=== PATIENT | male | born 1940 | race Caucasian/White ===

== ENCOUNTER 2017-01-09 11:15 | Emergency (ER) | payer MEDICARE, MEDICAID, OTHER ==
[2017-01-09 11:27] VITALS: BP 124/63
--- NOTE | 2017-01-09 11:28 | EDM.PDOC ---
ED HPI GENERAL MEDICAL PROBLEM - General Chief Complaint: Respiratory Problem Stated Complaint: Cough x3 months, Hx of COPD Time Seen by Provider: 01/09/17 11:27 Source of Information: Reports: Patient, RN, RN Notes Reviewed History Limitations: Reports: No Limitations - History of Present Illness INITIAL COMMENTS - FREE TEXT/NARRATIVE: Arrives from home by POV with c/o cough x3 months. Pt states he has been to 3 doctors and none of them can figure out what is wrong with him. Pt reports mild clear sputum production. Denies fevers, chills, N/V, chest pain, abdominal pain , unintended weight gain or loss, or edema. Pt states that a little over a year ago he began to try to reduce his wt and his "[place]" doctor started him on a little while pill which helped him reduce his weight from 280lbs to 215lbs in a little over a year. 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: Other Medication(s) Headache Pain Score (Numeric/FACES): 3 - Related Data Allergies Allergy/AdvReac Type Severity Reaction Status Date / Time No Known Allergies Allergy Verified 01/09/17 11:24 Home Meds: Home Meds Aspirin [Adult Low Dose Aspirin EC] 81 mg PO DAILY 05/22/14 [History] Budesonide/Formoterol [Symbicort 160-4.5 MCG] 2 puff INH BID 05/22/14 [History] Carvedilol 12.5 mg PO BID 05/22/14 [History] Cholecalciferol (Vitamin D3) [Vitamin D3] 400 unit PO DAILY 05/22/14 [History] Citalopram [Citalopram HBr] 10 mg PO DAILY 05/22/14 [History] Clopidogrel [Plavix] 75 mg PO DAILY 05/22/14 [History] Furosemide [Lasix] 20 mg PO ASDIRECTED 05/22/14 [History] Furosemide [Lasix] 40 mg PO DAILY 05/22/14 [History] Levothyroxine [Synthroid] 100 mcg PO DAILY 05/22/14 [History] Lisinopril 5 mg PO DAILY 05/22/14 [History] Niacin 500 mg PO DAILY 05/22/14 [History] atorvaSTATin [Lipitor] 20 mg PO BEDTIME 05/22/14 [History] Past Medical History HEENT History: Reports: Hard of Hearing, Impaired Vision Cardiovascular History: Reports: Angina, Automatic Implantable Cardioverter Defibrillators, CAD, Heart Failure, High Cholesterol, Hypertension Respiratory History: Reports: COPD Psychiatric History: Reports: Depression Endocrine/Metabolic History: Reports: Hypothyroidism, Obesity/BMI 30+ Social & Family History - Family History Family Medical History: Noncontributory - Tobacco Use Smoking Status *Q: Former Smoker - Caffeine Use Caffeine Use: Reports: Coffee - Alcohol Use Alcohol Use History: No - Living Situation & Occupation Living situation: Reports: , with Spouse Occupation: Retired ED ROS ENT - Review of Systems Review Of Systems: ROS reveals no pertinent complaints other than HPI. ED EXAM, ENT - Physical Exam Exam: See Below Exam Limited By: No Limitations General Appearance: Alert, No Apparent Distress Ears: Normal External Exam, Hearing Grossly Normal Nose: Normal Inspection, No Blood Mouth/Throat: Normal Inspection, Normal Gums, Normal Lips, Normal Oropharynx, Normal Teeth Head: Atraumatic, Normocephalic Neck: Normal Inspection, Supple, Non-Tender, Full Range of Motion. No: Lymphadenopathy (L), Lymphadenopathy (R) Respiratory/Chest: No Respiratory Distress, No Accessory Muscle Use, Decreased Breath Sounds, Crackles, Rhonchi (intermittent at left base) Cardiovascular: Normal Peripheral Pulses, Regular Rate, Rhythm, No Edema, No Gallop, No JVD, No Murmur, No Rub GI/Abdominal: Normal Bowel Sounds, Soft, Non-Tender, No Organomegaly, No Distention, No Abnormal Bruit (Male) Exam: Deferred Rectal (Males) Exam: Deferred Back: Normal Inspection Extremities: Normal Inspection, Normal Range of Motion, Non-Tender, No Pedal Edema, Normal Capillary Refill Neurological: Alert, Oriented, CN II-XII Intact, Normal Cognition, Normal Gait, No Motor/Sensory Deficits Psychiatric: Normal Affect, Normal Mood Skin: Warm, Dry, Intact, Normal Color, No Rash Course - Vital Signs Last Recorded V/S: Last Vital Signs Temp 36.2 C 01/09/17 11:25 Pulse 66 01/09/17 11:25 Resp 16 01/09/17 11:25 BP 124/63 01/09/17 11:25 Pulse Ox 98 01/09/17 11:25 - Orders/Labs/Meds Labs: Laboratory Tests 01/09/17 01/09/17 Range/Units 11:54 11:54 WBC 8.7 (5.0-10.0) 10^3/uL RBC 4.59 L (4.6-6.2) 10^6/uL Hgb 14.0 (14.0-18.0) g/dL Hct 42.7 (40.0-54.0) % MCV 93.0 (80-100) fL MCH 30.5 (27.0-34.0) pg MCHC 32.8 L (33.0-35.0) g/dL Plt Count 211 (150-450) 10^3/uL Neut % (Auto) 64.6 (42.2-75.2) % Lymph % (Auto) 22.3 (20.5-50.1) % [place] % (Auto) 10.4 H (2-8) % Eos % (Auto) 2.0 (1.0-3.0) % Baso % (Auto) 0.7 (0.0-1.0) % Sodium 138 (135-145) mmol/L Potassium 4.3 (3.6-5.0) mmol/L Chloride 98 L (101-111) mmol/L Carbon Dioxide 30.0 (21.0-31.0) mmol/L Anion Gap 14.3 BUN 17 (7-18) mg/dL Creatinine 1.0 (0.6-1.3) mg/dL Est Cr Clr Drug Dosing 64.81 mL/min Estimated GFR (MDRD) > 60 BUN/Creatinine Ratio 17.00 Glucose 110 H (74-105) mg/dL Calcium 9.0 (8.4-10.2) mg/dl Total Bilirubin 0.8 (0.2-1.0) mg/dL AST 18 (10-42) IU/L ALT 15 (10-60) IU/L Alkaline Phosphatase 90 (42-121) IU/L B-Natriuretic Peptide 71 (0-100) pg/ml Total Protein 6.0 L (6.7-8.2) g/dl Albumin 3.4 (3.2-5.5) g/dl Globulin 2.6 Albumin/Globulin Ratio 1.31 - Radiology Interpretation Free Text/Narrative:: 2V CXR: pacer w/single lead, sternotomy wires, chronic COPD changes, scarring/ atelectasis vs consolidation in left lower lobe. Departure - Departure Time of Disposition: 12:40 Disposition: Home, Self-Care 01 Condition: Fair Clinical Impression: Atelectasis of left lung COPD (chronic obstructive pulmonary disease) Qualifiers: COPD type: chronic bronchitis Chronic bronchitis type: unspecified Qualified Code(s): J42 - Unspecified chronic bronchitis - Discharge Information Instructions: Chronic Bronchitis, Atelectasis, Adult Forms: ED Department Discharge Additional Instructions: Rx: Levaquin 500mg Rx: Prednisone 20mg Follow up in clinic with Dr. Foote this week for recheck.
[2017-01-09 12:19] LABS: CHLORIDE,CL 98 mmol/L (101-111); SODIUM,NA 138 mmol/L (135-145)
--- NOTE | 2017-01-09 12:24 | CR ---
Clinical history: 76-year-old male cough and "rhonchi" left lung base. Interpretation: Platelike atelectasis left base new since August 2014 comparison film. Borderline cardiomegaly unchanged this patient with sternotomy wires and cardiac pacemaker. No cephalization of flow, new signs of alveolar edema, dependent effusion, lung mass or focal lobar p neumonia. No pneumothorax. CONCLUSION: Atelectasis/fibrosis left base. No signs of heart failure or lobar pneumonia.
== END 2017-01-09 12:50 | disposition home or self-care (01) ==
LOC: DL.ED 11:15
DX: J42 Unspecified chronic bronchitis (principal); J98.11 Atelectasis; H54.7 Unspecified visual loss; I25.119 Atherosclerotic heart disease of native coronary artery with unspecified angina pectoris; I11.0 Hypertensive heart disease with heart failure; I50.9 Heart failure, unspecified; E66.9 Obesity, unspecified; F32.9 Major depressive disorder, single episode, unspecified; Z87.891 Personal history of nicotine dependence; Z79.899 Other long term (current) drug therapy; Z79.82 Long term (current) use of aspirin
CPT/HCPCS: 36415; 71020; 80053; 83880; 85025; 99283; 99284

== ENCOUNTER 2019-10-01 05:53 | Day surgery (SDC) | payer MEDICARE, MEDICAID ==
[2019-10-01] MEDS ORDERED: fentaNYL 100 MCG/2 ML SDV IV ONE ×3 (05:54→06:59)
[2019-10-01] MEDS ORDERED: Midazolam 1 MG/ML 2 ML SDV IV ONE ×6 (05:54→07:09)
[2019-10-01] MEDS ORDERED: fentaNYL 100 MCG/2 ML SDV ONE (06:22)
[2019-10-01] MEDS ORDERED: Midazolam 1 MG/ML 2 ML SDV ONE (06:22)
[2019-10-01] MEDS ORDERED: Sodium Chloride 0.9% 10 ML Syringe FLUSH PRN (07:29)
[2019-10-01] MEDS ORDERED: Dextrose 5%-0.45% NaCl 1,000 ML IV SCH (07:30)
--- NOTE | 2019-10-01 08:53 | OR ---
DATE: 10/01/2019 PROCEDURE: Total colonoscopy, terminal ileoscopy, and multiple pinch biopsies. INSTRUMENT USED: PCF-H190DL Olympus video colonoscope. PREMEDICATIONS: Fentanyl 100 mcg intravenous, Versed 3 mg intravenous. Nasal O2 cannula. The procedure was done under pulse oximetry, BP recording, and playground monitor. INDICATION: The patient with chronic diarrhea, unexplained and not responsive to medical measures. Colonoscopic examination is done for detection of any polypoid lesions and removal, biopsies to be obtained for microscopic colitis, endoscopic hemostasis therapy if needed. DESCRIPTION OF PROCEDURE: Initial rectal exam was unremarkable. Rigid anoscopy showed moderate sized internal hemorrhoids without bleeding from them. The colonoscope was passed with ease. Numerous scattered diverticula were noted in the distal left colon along with deformity. The scope was passed with ease up to and beyond the ileocecal junction to visualize normal-appearing terminal ileum, photographs were taken, multiple pinch biopsies were obtained from the terminal ileum and sent for histopathology. Photographs were also taken of the normal-appearing cecum. No bleeding was noted from any of the visualized areas at the commencement of the examination. There was large amount of fecal material that had to be aspirated. Some solid in consistency that could not be cleared. The bowel preparation was found to be scale of 1 in the right colon, 2 in transverse colon, and 1 in the left colon, total score 4. No stricture. No vascular ectasia. No large isolated ulcerations seen. No evidence of diffuse inflammatory bowel disease in the form of friability, contact bleeding, or ulcerations. No polyp or tumor mass identified. Probing the proximal sides of folds and flexures using adequate distention and clearing up the stool material, withdrawal of the scope was made. Multiple pinch biopsies were taken from the normal-appearing mucosa of the mid transverse colon, mid descending colon, and rectosigmoid, and sent for any histopathologic evidence of microscopic colitis. No bleeding was noted from any of the visualized areas at the completion of examination. IMPRESSION: 1. Internal hemorrhoids. 2. Diverticulosis. The patient tolerated the procedure well. [facility] /[id number]
[2019-10-01 09:39] VITALS: BP 116/48; PULSE 73
== END 2019-10-01 09:30 | disposition home or self-care (01) ==
LOC: DL.ENDO 05:53
PROVIDERS: ATTEND Internal Medicine Gastroenterology
DX: K52.9 Noninfective gastroenteritis and colitis, unspecified (principal); K57.30 Diverticulosis of large intestine without perforation or abscess without bleeding; K64.8 Other hemorrhoids; K63.89 Other specified diseases of intestine; I50.9 Heart failure, unspecified; E78.5 Hyperlipidemia, unspecified; J44.9 Chronic obstructive pulmonary disease, unspecified; E11.9 Type 2 diabetes mellitus without complications; E66.09 Other obesity due to excess calories; G47.33 Obstructive sleep apnea (adult) (pediatric); Z90.49 Acquired absence of other specified parts of digestive tract; Z98.890 Other specified postprocedural states; Z87.11 Personal history of peptic ulcer disease; Z87.891 Personal history of nicotine dependence; Z68.33 Body mass index [BMI] 33.0-33.9, adult
CPT/HCPCS: 45380; J2250; J3010; J7042; 88305

== ENCOUNTER 2022-04-11 10:37 | Emergency (ER) | payer MEDICARE, MEDICAID ==
[2022-04-11 11:33] VITALS: BP 121/86
[2022-04-11] MEDS ORDERED: Albuterol/Ipratropium 3.0-0.5 MG/3 ML Neb Soln NEB ONE (11:55)
[2022-04-11 12:11] LABS: ANION GAP 10.1 mEq/L (7-13)
[2022-04-11 12:42] VITALS: PULSE 75
[2022-04-11] MEDS ORDERED: methylPREDNISolone Sodium Succinate 125 MG/2 ML SDV IVPUSH ONE (13:20)
[2022-04-11] MEDS ORDERED: methylPREDNISolone Sodium Succinate 125 MG/2 ML SDV IM ONE (13:33)
== END 2022-04-11 13:18 | disposition home or self-care (01) ==
LOC: DL.ED 10:37
DX: J44.1 Chronic obstructive pulmonary disease with (acute) exacerbation (principal); I11.0 Hypertensive heart disease with heart failure; I50.9 Heart failure, unspecified; M10.9 Gout, unspecified; I25.119 Atherosclerotic heart disease of native coronary artery with unspecified angina pectoris; E78.00 Pure hypercholesterolemia, unspecified; E03.9 Hypothyroidism, unspecified; Z88.0 Allergy status to penicillin; Z79.82 Long term (current) use of aspirin; Z79.899 Other long term (current) drug therapy; Z20.822 Contact with and (suspected) exposure to COVID-19
CPT/HCPCS: 36415; 71046; 80053; 83605; 83880; 85025; 94640; 96372; 99285; J2930; J7620-GY

== ENCOUNTER 2022-08-18 02:03 | Emergency (ER) | payer MEDICARE, MEDICAID ==
[2022-08-18] MEDS ORDERED: Sodium Chloride 0.9% 10 ML Syringe FLUSH PRN (02:08)
[2022-08-18] MEDS ORDERED: Aspirin 81 MG Tab.Chew ONE (02:12)
[2022-08-18] MEDS ORDERED: Aspirin 81 MG Tab.Chew PO ONE (02:21)
[2022-08-18 02:44] VITALS: BP 106/71; PULSE 139
[2022-08-18 02:50] LABS: ANION GAP 11.3 mEq/L (7-13)
[2022-08-18 03:04] LABS: PTT,PARTIAL THROMBOPLSTIN TIME 27.7 SEC (22.0-34.0)
[2022-08-18] MEDS ORDERED: GI Cocktail Oral Solution 30 ML PO ONE (04:15)
[2022-08-18] MEDS ORDERED: Acetaminophen 325 MG Tab PO ONE (04:16)
== END 2022-08-18 06:07 | disposition home or self-care (01) ==
LOC: DL.ED 02:03
DX: R07.89 Other chest pain (principal); I25.10 Atherosclerotic heart disease of native coronary artery without angina pectoris; E78.00 Pure hypercholesterolemia, unspecified; I11.0 Hypertensive heart disease with heart failure; I50.9 Heart failure, unspecified; J44.9 Chronic obstructive pulmonary disease, unspecified; E03.9 Hypothyroidism, unspecified; E66.9 Obesity, unspecified; Z68.34 Body mass index [BMI] 34.0-34.9, adult; Z79.02 Long term (current) use of antithrombotics/antiplatelets; Z86.16 Personal history of COVID-19; Z79.82 Long term (current) use of aspirin; Z79.899 Other long term (current) drug therapy; Z79.51 Long term (current) use of inhaled steroids; Z88.0 Allergy status to penicillin; Z88.8 Allergy status to other drugs, medicaments and biological substances
CPT/HCPCS: 36415; 80053; 84484; 85025; 85610; 85730; 93005; 93010; 99284; 99285; A9270; J3490

== ENCOUNTER 2022-11-25 15:42 | Observation (INO) | payer MEDICARE, MEDICAID ==
[2022-11-25] MEDS ORDERED: Albuterol/Ipratropium 3.0-0.5 MG/3 ML Neb Soln NEB ONE (16:17)
[2022-11-25 16:29] LABS: BASOPHILS PERCENT AUTO 0.7 % (0.0-1.0); EOSINOPHILS PERCENT AUTO 4.5 % (1.0-3.0); HEMATOCRIT 44.9 % (40.0-54.0); HEMOGLOBIN 14.5 g/dL (14.0-18.0); LYMPHOCYTES PERCENT AUTO 25.1 % (20.5-50.1); MEAN CORPUSCULAR HEMOGLOBIN 29.2 pg (27.0-34.0); MEAN CORPUSCULAR HGB CONC 32.3 g/dL (33.0-35.0); MEAN CORPUSCULAR VOLUME 90.5 fL (80-100); MONOCYTES PERCENT AUTO 12.7 % (2-8); PLATELET COUNT,PLT 181 10^3/uL (150-450); RED BLOOD CELL COUNT 4.96 10^6/uL (4.6-6.2); WHITE BLOOD CELL COUNT,WBC 7.1 10^3/uL (5.0-10.0)
[2022-11-25 16:37] LABS: APPEARANCE,URINE CLEAR (CLEAR); BILIRUBIN,URINE NEGATIVE (NEGATIVE); COLOR,URINE YELLOW (YELLOW); GLUCOSE,URINE NEGATIVE (NEGATIVE); KETONES,URINE NEGATIVE (NEGATIVE); LEUKOCYTE ESTERASE,URINE NEGATIVE (NEGATIVE); NITRITE,URINE NEGATIVE (NEGATIVE); OCCULT BLOOD,URINE NEGATIVE (NEGATIVE); PH,URINE 6.5 (5.0-9.0); PROTEIN,URINE NEGATIVE (NEGATIVE); UROBILINOGEN,URINE 0.2 mg/dL (0.2-1.0)
[2022-11-25 16:49] LABS: ALBUMIN 3.1 g/dL (3.4-5.0); ANION GAP 8.1 mEq/L (7-13); BILIRUBIN TOTAL 0.6 mg/dL (0.2-1.0); BUN/CREATININE RATIO 21.4 (No establ ref range); C-REACTIVE PROTEIN 2.2 mg/dL (0.0-0.9); CREATININE 0.98 mg/dL (0.70-1.30); EST CRCL DRUG DOSING (CG) 62.07 mL/min; POTASSIUM,K 4.1 mmol/L (3.5-5.1); PROTEIN TOTAL,TP 6.2 g/dL (6.4-8.2)
[2022-11-25 16:52] LABS: LACTIC ACID 1.2 mmol/L (0.4-2.0)
[2022-11-25 16:58] LABS: PROTHROMBIN TIME 10.1 SEC (9.0-12.0)
[2022-11-25] MEDS ORDERED: Furosemide 100 MG/10 ML SDV IVPUSH ONE (17:08)
[2022-11-25] MEDS ORDERED: Bisacodyl 5 MG Tab PO PRN (17:58)
[2022-11-25] MEDS ORDERED: Acetaminophen/oxyCODONE 325-5 MG Tab PO PRN (17:58)
[2022-11-25] MEDS ORDERED: Ondansetron 4 MG/2 ML SDV IVPUSH PRN (17:58)
[2022-11-25] MEDS ORDERED: HYDROmorphone 0.5 MG/0.5 ML Syringe IVPUSH PRN (17:58)
[2022-11-25] MEDS ORDERED: Albuterol/Ipratropium 3.0-0.5 MG/3 ML Neb Soln NEB PRN (17:58)
[2022-11-25] MEDS ORDERED: Magnesium Hydroxide 400 MG/5 ML Susp 30 ML Cup PO PRN (17:58)
[2022-11-25] MEDS ORDERED: Acetaminophen 325 MG Tab PO PRN (17:58)
[2022-11-25] MEDS ORDERED: Melatonin 3 MG Tab PO PRN (18:03)
[2022-11-25] MEDS ORDERED: 50% Dextrose in Water 50 ML Syringe IVPUSH PRN (20:04)
[2022-11-25] MEDS ORDERED: Glucagon,Human Recombinant 1 MG Vial IM PRN (20:04)
[2022-11-26 06:21] LABS: BASOPHILS PERCENT AUTO 0.6 % (0.0-1.0); EOSINOPHILS PERCENT AUTO 5.1 % (1.0-3.0); HEMATOCRIT 44.9 % (40.0-54.0); HEMOGLOBIN 14.6 g/dL (14.0-18.0); LYMPHOCYTES PERCENT AUTO 28.8 % (20.5-50.1); MEAN CORPUSCULAR HEMOGLOBIN 29.4 pg (27.0-34.0); MEAN CORPUSCULAR HGB CONC 32.5 g/dL (33.0-35.0); MEAN CORPUSCULAR VOLUME 90.3 fL (80-100); MONOCYTES PERCENT AUTO 12.1 % (2-8); NEUTROPHILS PERCENT AUTO 53.4 % (42.2-75.2); PLATELET COUNT,PLT 180 10^3/uL (150-450); RED BLOOD CELL COUNT 4.97 10^6/uL (4.6-6.2); WHITE BLOOD CELL COUNT,WBC 6.7 10^3/uL (5.0-10.0)
[2022-11-26 06:27] LABS: ALBUMIN 2.8 g/dL (3.4-5.0); BILIRUBIN TOTAL 0.6 mg/dL (0.2-1.0); BUN/CREATININE RATIO 18.1 (No establ ref range); CALCIUM 8.8 mg/dL (8.5-10.1); CREATININE 1.05 mg/dL (0.70-1.30); EST CRCL DRUG DOSING (CG) 57.94 mL/min; MAGNESIUM 2.1 mg/dL (1.8-2.4); PROTEIN TOTAL,TP 5.8 g/dL (6.4-8.2)
[2022-11-26 06:30] LABS: A/G RATIO 0.93
[2022-11-26] MEDS: Insulin Lispro 100 Units/ML 3 ML Vial SUBCUT SCH ×3 (08:17→17:02)
[2022-11-26] MEDS ORDERED: Sodium Chloride 0.9% 10 ML Syringe FLUSH PRN (08:52)
[2022-11-26] MEDS: Saccharomyces Boulardii (Probiotic) 250 MG Cap PO SCH (08:58)
[2022-11-26] MEDS ORDERED: Bumetanide 1 MG/4 ML MDV IVPUSH ONE (09:00)
[2022-11-26] MEDS ORDERED: cefTRIAXone 2 GM Vial IVPUSH SCH (09:00)
[2022-11-26] MEDS ORDERED: LORazepam 0.5 MG Tab PO PRN (10:05)
[2022-11-26] MEDS ORDERED: INCRUSE ELLIPTA 62.5 MCG INH SCH ×2 (13:15→21:00)
[2022-11-26] MEDS: Clopidogrel 75 MG Tab **OWN MED PO SCH (14:42)
[2022-11-26] MEDS: MONTELUKAST 10 MG PO SCH (14:42)
[2022-11-26] MEDS: Citalopram 20 MG Tab **OWN MED PO SCH (14:43)
[2022-11-26] MEDS: Levothyroxine 88 MCG Tab **OWN MED PO SCH (16:05)
[2022-11-26] MEDS: CARVEDILOL 12.5 MG PO SCH (17:59)
[2022-11-26] MEDS ORDERED: Carvedilol 6.25 MG Tab PO SCH (18:00)
[2022-11-26] MEDS ORDERED: Aspirin 81 MG Tab.EC **OWN MED PO SCH (21:00)
[2022-11-26] MEDS ORDERED: ATORVASTATIN 40 MG PO SCH (21:00)
[2022-11-26] MEDS ORDERED: Non-Formulary Medication 1 Each (Budesonide/Formoterol 6 GM Inhaler) INH SCH (21:00)
[2022-11-26] MEDS ORDERED: atorvaSTATin 20 MG Tab PO SCH (21:00)
[2022-11-27] MEDS: Levothyroxine 88 MCG Tab **OWN MED PO SCH (05:39)
[2022-11-27] MEDS ORDERED: Levothyroxine 88 MCG Tab PO SCH (06:30)
[2022-11-27 06:53] LABS: ALBUMIN 2.9 g/dL (3.4-5.0); BILIRUBIN TOTAL 0.7 mg/dL (0.2-1.0); BUN/CREATININE RATIO 25.5 (No establ ref range); C-REACTIVE PROTEIN 3.1 mg/dL (0.0-0.9); CALCIUM 8.9 mg/dL (8.5-10.1); CREATININE 0.94 mg/dL (0.70-1.30); EST CRCL DRUG DOSING (CG) 64.72 mL/min; MAGNESIUM 2.3 mg/dL (1.8-2.4); PROTEIN TOTAL,TP 6.2 g/dL (6.4-8.2)
[2022-11-27 07:03] LABS: A/G RATIO 0.88
[2022-11-27] MEDS: Insulin Lispro 100 Units/ML 3 ML Vial SUBCUT SCH (08:08)
[2022-11-27] MEDS: Saccharomyces Boulardii (Probiotic) 250 MG Cap PO SCH (08:23)
[2022-11-27] MEDS: MONTELUKAST 10 MG PO SCH (08:24)
[2022-11-27] MEDS: CARVEDILOL 12.5 MG PO SCH (08:24)
[2022-11-27] MEDS: Citalopram 20 MG Tab **OWN MED PO SCH (08:25)
[2022-11-27] MEDS: Clopidogrel 75 MG Tab **OWN MED PO SCH (08:25)
[2022-11-27] MEDS ORDERED: Montelukast 10 MG Tab PO SCH (09:00)
[2022-11-27] MEDS ORDERED: Citalopram 20 MG Tab PO SCH (09:00)
[2022-11-27] MEDS ORDERED: Clopidogrel 75 MG Tab PO SCH (09:00)
[2022-11-27] MEDS ORDERED: Bumetanide 1 MG/4 ML MDV IVPUSH ONE (09:19)
[2022-11-27 13:26] VITALS: BP 128/57; PULSE 72
== END 2022-11-27 12:40 | disposition home or self-care (01) ==
LOC: DL.ED 15:42 → DL.MS 17:53
PROVIDERS: ADMIT Internal Medicine; ATTEND Internal Medicine
DX: L03.115 Cellulitis of right lower limb (principal); I10 Essential (primary) hypertension; E78.5 Hyperlipidemia, unspecified; I25.2 Old myocardial infarction; I50.20 Unspecified systolic (congestive) heart failure; J44.9 Chronic obstructive pulmonary disease, unspecified; G47.33 Obstructive sleep apnea (adult) (pediatric); E11.9 Type 2 diabetes mellitus without complications; E07.9 Disorder of thyroid, unspecified; M10.9 Gout, unspecified; K52.9 Noninfective gastroenteritis and colitis, unspecified; F41.9 Anxiety disorder, unspecified; F32.A Depression, unspecified; R60.0 Localized edema; R06.02 Shortness of breath; E66.9 Obesity, unspecified; I20.9 Angina pectoris, unspecified; E78.00 Pure hypercholesterolemia, unspecified; E03.9 Hypothyroidism, unspecified; Z87.891 Personal history of nicotine dependence; Z98.49 Cataract extraction status, unspecified eye; Z90.89 Acquired absence of other organs; Z95.810 Presence of automatic (implantable) cardiac defibrillator; Z88.0 Allergy status to penicillin; Z88.1 Allergy status to other antibiotic agents; Z79.82 Long term (current) use of aspirin; Z79.899 Other long term (current) drug therapy; Z90.49 Acquired absence of other specified parts of digestive tract
CPT/HCPCS: 36415; 71046; 80053; 81003; 82947; 83605; 83735; 83880; 85025; 85379; 85610; 85730; 86140; 93970; 94640; 99222; 99232; 99238; 99284; A9270-GY; J0696; J1940; J3370; J3490; J7040; J7620-GY; U0002

== ENCOUNTER 2023-05-15 05:19 | Inpatient (IN) | payer MEDICARE, MEDICAID ==
[2023-05-15] MEDS ORDERED: Sodium Chloride 0.9% 10 ML Syringe FLUSH PRN ×2 (05:24→09:11)
[2023-05-15] MEDS ORDERED: Adenosine 6 MG/2 ML SDV IVPUSH ONE ×2 (05:36→05:48)
[2023-05-15 05:43] LABS: BASOPHILS PERCENT AUTO 0.1 % (0.0-1.0); EOSINOPHILS PERCENT AUTO 0.2 % (1.0-3.0); HEMATOCRIT 52.7 % (40.0-54.0); HEMOGLOBIN 17.3 g/dL (14.0-18.0); LYMPHOCYTES PERCENT AUTO 13.7 % (20.5-50.1); MEAN CORPUSCULAR HEMOGLOBIN 29.9 pg (27.0-34.0); MEAN CORPUSCULAR HGB CONC 32.8 g/dL (33.0-35.0); MONOCYTES PERCENT AUTO 8.4 % (2-8); NEUTROPHILS PERCENT AUTO 77.6 % (42.2-75.2); PLATELET COUNT,PLT 186 10^3/uL (150-450); RED BLOOD CELL COUNT 5.79 10^6/uL (4.6-6.2); WHITE BLOOD CELL COUNT,WBC 8.5 10^3/uL (5.0-10.0)
[2023-05-15] MEDS ORDERED: Sodium Chloride 0.9% 1,000 ML IV SCH (06:00)
[2023-05-15 06:06] LABS: ALBUMIN 2.9 g/dL (3.4-5.0); ANION GAP 10.5 mEq/L (7-13); BILIRUBIN TOTAL 1.1 mg/dL (0.2-1.0); BUN/CREATININE RATIO 20.9 (No establ ref range); CALCIUM 8.3 mg/dL (8.5-10.1); CREATININE 1.1 mg/dL (0.70-1.30); EST CRCL DRUG DOSING (CG) 55.3 mL/min; MAGNESIUM 2.1 mg/dL (1.8-2.4); POTASSIUM,K 3.5 mmol/L (3.5-5.1); PROTEIN TOTAL,TP 6.4 g/dL (6.4-8.2); TSH ULTRASENSITIVE 4.18 uIU/mL (0.36-3.74)
[2023-05-15 06:12] LABS: A/G RATIO 0.83
[2023-05-15] MEDS ORDERED: Diltiazem 25 MG/5 ML SDV IVPUSH ONE (06:14)
[2023-05-15 06:48] LABS: INFLUENZA A NAA NEGATIVE (NEGATIVE); INFLUENZA B NAA NEGATIVE (NEGATIVE); RESPIRATORY SYNCYTIAL VIR NAA NEGATIVE (NEGATIVE)
[2023-05-15 06:50] LABS: CORONAVIRUS COVID-19 NAA POSITIVE (NEGATIVE)
[2023-05-15] MEDS ORDERED: Diltiazem 125 MG in Sodium Chloride 0.9% 100 ML IV SCH (07:00)
[2023-05-15] MEDS ORDERED: Aspirin 81 MG Tab.Chew PO ONE (07:04)
[2023-05-15] MEDS ORDERED: Apixaban 5 MG Tab PO ONE (07:06)
[2023-05-15 08:56] LABS: CHOLESTEROL HDL 61 mg/dL (40-59); CHOLESTEROL LDL CALCULATED 34 mg/dL (0-100); CHOLESTEROL TOTAL 121 mg/dL (0-199); TRIGLYCERIDES 131 mg/dL (0-149)
[2023-05-15] MEDS ORDERED: Acetaminophen 325 MG Tab PO PRN (09:11)
[2023-05-15] MEDS ORDERED: Albuterol/Ipratropium 3.0-0.5 MG/3 ML Neb Soln NEB PRN (09:11)
[2023-05-15] MEDS ORDERED: Ondansetron 4 MG/2 ML SDV IVPUSH PRN (09:11)
[2023-05-15] MEDS ORDERED: Polyethylene Glycol 3350 Powder 17 GM Packet PO PRN (09:11)
[2023-05-15] MEDS ORDERED: HYDROmorphone 0.5 MG/0.5 ML Syringe IVPUSH PRN (09:11)
[2023-05-15] MEDS ORDERED: Magnesium Hydroxide 400 MG/5 ML Susp 30 ML Cup PO PRN (09:11)
[2023-05-15] MEDS ORDERED: Sennosides/Docusate Sodium 50-8.6 MG Tab PO PRN (09:11)
[2023-05-15] MEDS ORDERED: hydrALAZINE 20 MG/ML SDV IVPUSH PRN (09:19)
[2023-05-15] MEDS ORDERED: Metoprolol Tartrate 5 MG/5 ML SDV IVPUSH PRN (09:19)
[2023-05-15] MEDS ORDERED: REMDESIVIR 200 MG in Sodium Chloride 0.9% 250 ML IV ONE (09:20)
[2023-05-15] MEDS ORDERED: guaiFENesin/Dextromethorphan 100-10 MG/5 ML Soln 5 ML Cup PO PRN (09:24)
[2023-05-15] MEDS ORDERED: Azithromycin 500 MG in Sodium Chloride 0.9% 250 ML IV SCH (09:30)
[2023-05-15] MEDS ORDERED: cefTRIAXone 1 GM Vial IVPUSH SCH (09:30)
[2023-05-15] MEDS ORDERED: Dexamethasone 4 MG/ML SDV IVPUSH ONE (14:22)
[2023-05-15] MEDS ORDERED: 50% Dextrose in Water 50 ML Syringe IVPUSH PRN (14:23)
[2023-05-15] MEDS ORDERED: Glucagon,Human Recombinant 1 MG Vial IM PRN (14:23)
[2023-05-15] MEDS ORDERED: Metoprolol Tartrate 25 MG Tab PO ONE (14:35)
[2023-05-15 16:48] VITALS: BP 125/74; PULSE 74
[2023-05-15] MEDS ORDERED: Insulin Lispro 100 Units/ML 3 ML Vial SUBCUT SCH (17:00)
[2023-05-15] MEDS ORDERED: Heparin Sodium/0.45% NaCl 25,000 UNITS/500 ML BAG IV SCH (19:00)
[2023-05-15] MEDS ORDERED: Heparin Sodium 5,000 Units/ML Vial IVPUSH ONE (19:00)
[2023-05-15] MEDS ORDERED: Sodium Chloride 0.9% 10 ML Syringe FLUSH SCH (21:00)
[2023-05-15] MEDS ORDERED: Apixaban 5 MG Tab PO SCH (21:00)
[2023-05-15] MEDS ORDERED: Metoprolol Tartrate 25 MG Tab PO SCH (21:00)
[2023-05-15] MEDS ORDERED: Saccharomyces Boulardii (Probiotic) 250 MG Cap PO SCH (21:00)
[2023-05-16] MEDS ORDERED: Dexamethasone 6 MG TABLET PO SCH (08:00)
[2023-05-16] MEDS ORDERED: REMDESIVIR 100 MG in Sodium Chloride 0.9% 100 ML IV SCH (09:00)
== END 2023-05-15 17:30 | DRG 280 ==
LOC: DL.ED 05:19 → DL.MS 07:03 → DL.ED 07:52
PROVIDERS: ADMIT Internal Medicine; ATTEND Internal Medicine
PROC: 3E0333Z Introduction of Anti-inflammatory into Peripheral Vein, Percutaneous Approach (ICD-10-PCS; principal; 2023-05-15)
DX: I48.91 Unspecified atrial fibrillation (principal); J12.82 Pneumonia due to coronavirus disease 2019; I21.A1 Myocardial infarction type 2; U07.1 COVID-19; I50.9 Heart failure, unspecified; I50.20 Unspecified systolic (congestive) heart failure; E03.9 Hypothyroidism, unspecified; Z66 Do not resuscitate; Z20.822 Contact with and (suspected) exposure to COVID-19; Z86.16 Personal history of COVID-19; I25.10 Atherosclerotic heart disease of native coronary artery without angina pectoris; I11.0 Hypertensive heart disease with heart failure; J44.9 Chronic obstructive pulmonary disease, unspecified; G47.33 Obstructive sleep apnea (adult) (pediatric); M10.9 Gout, unspecified; K52.9 Noninfective gastroenteritis and colitis, unspecified; F41.9 Anxiety disorder, unspecified; F32.A Depression, unspecified; E66.9 Obesity, unspecified; E78.00 Pure hypercholesterolemia, unspecified; E11.65 Type 2 diabetes mellitus with hyperglycemia; E80.6 Other disorders of bilirubin metabolism; R74.8 Abnormal levels of other serum enzymes; R79.89 Other specified abnormal findings of blood chemistry; I25.2 Old myocardial infarction; Z95.1 Presence of aortocoronary bypass graft; Z88.1 Allergy status to other antibiotic agents; Z88.8 Allergy status to other drugs, medicaments and biological substances; Z79.82 Long term (current) use of aspirin; Z79.02 Long term (current) use of antithrombotics/antiplatelets; Z79.899 Other long term (current) drug therapy; Z79.3 Long term (current) use of hormonal contraceptives; Z79.51 Long term (current) use of inhaled steroids; Z68.34 Body mass index [BMI] 34.0-34.9, adult; Z98.49 Cataract extraction status, unspecified eye; Z90.89 Acquired absence of other organs; Z95.5 Presence of coronary angioplasty implant and graft; Z90.49 Acquired absence of other specified parts of digestive tract
CPT/HCPCS: 0241U; 36415; 71045; 80053; 80061; 82248; 82947; 83735; 83880; 84439; 84443; 84484; 85025; 85730; 93005; 93010; 94060; 94667; 94760; 96374; 99285; 99285-25; A9270-GY; J0153; J0456; J0696; J1100; J1815-GY; J3490; J7030; J7050

== ENCOUNTER 2023-08-04 09:19 | Emergency (ER) | payer MEDICARE, MEDICAID ==
[2023-08-04] MEDS: Sodium Chloride 0.9% 1,000 ML IV ONE (09:50)
[2023-08-04 10:02] LABS: BASOPHILS PERCENT AUTO 0.6 % (0.0-1.0); EOSINOPHILS PERCENT AUTO 4.7 % (1.0-3.0); HEMATOCRIT 33.9 % (40.0-54.0); HEMOGLOBIN 10.6 g/dL (14.0-18.0); LYMPHOCYTES PERCENT AUTO 30.9 % (20.5-50.1); MEAN CORPUSCULAR HEMOGLOBIN 30.2 pg (27.0-34.0); MEAN CORPUSCULAR HGB CONC 31.3 g/dL (33.0-35.0); MEAN CORPUSCULAR VOLUME 96.6 fL (80-100); MONOCYTES PERCENT AUTO 10.6 % (2-8); NEUTROPHILS PERCENT AUTO 53.2 % (42.2-75.2); PLATELET COUNT,PLT 240 10^3/uL (150-450); RED BLOOD CELL COUNT 3.51 10^6/uL (4.6-6.2); WHITE BLOOD CELL COUNT,WBC 7.8 10^3/uL (5.0-10.0)
[2023-08-04] MEDS: Sodium Chloride 0.9% 10 ML Syringe FLUSH PRN (10:15)
[2023-08-04 10:17] LABS: LACTIC ACID 1.7 mmol/L (0.4-2.0)
[2023-08-04 10:20] LABS: INR 1.1 (0.9-1.2); PROTHROMBIN TIME 11.7 SEC (9.0-12.0); PTT,PARTIAL THROMBOPLSTIN TIME 27.9 SEC (22.0-34.0)
[2023-08-04 10:24] LABS: A/G RATIO 0.91; ALANINE AMINOTRANSFERASE,ALT 14 U/L (16-63); ALBUMIN 3.2 g/dL (3.4-5.0); ALKALINE PHOSPHATASE 101 U/L (46-116); ANION GAP 9.2 mEq/L (7-13); ASPARTATE AMNIOTRANSFERASE,AST 17 U/L (15-37); BILIRUBIN TOTAL 0.5 mg/dL (0.2-1.0); BLOOD UREA NITROGEN,BUN 46 mg/dL (7-18); BUN/CREATININE RATIO 29.3 (No establ ref range); CALCIUM 9.5 mg/dL (8.5-10.1); CARBON DIOXIDE,CO2 36 mmol/L (21-32); CHLORIDE,CL 99 mmol/L (98-107); CREATININE 1.57 mg/dL (0.70-1.30); ESTIMATED GFR 44 mL/min (>=60); GLUCOSE RANDOM 127 mg/dL (70-99); LIPASE 56 U/L (16-77); POTASSIUM,K 4.2 mmol/L (3.5-5.1); PROTEIN TOTAL,TP 6.7 g/dL (6.4-8.2); SODIUM,NA 140 mmol/L (136-145)
[2023-08-04 10:31] LABS: B-TYPE NATRIURETIC PEPTIDE,BNP 48 pg/ml (0-100)
[2023-08-04 11:33] LABS: APPEARANCE,URINE CLEAR (CLEAR); BILIRUBIN,URINE NEGATIVE (NEGATIVE); COLOR,URINE YELLOW (YELLOW); GLUCOSE,URINE NEGATIVE (NEGATIVE); KETONES,URINE NEGATIVE (NEGATIVE); LEUKOCYTE ESTERASE,URINE NEGATIVE (NEGATIVE); NITRITE,URINE NEGATIVE (NEGATIVE); OCCULT BLOOD,URINE NEGATIVE (NEGATIVE); PROTEIN,URINE NEGATIVE (NEGATIVE); UROBILINOGEN,URINE 0.2 mg/dL (0.2-1.0)
[2023-08-04] MEDS ORDERED: Pantoprazole 40 MG Vial ONE (11:50)
[2023-08-04] MEDS: Pantoprazole 40 MG in Sodium Chloride 0.9% 100 ML IV SCH (11:56)
[2023-08-04 13:39] VITALS: BP 107/47; PULSE 81
== END 2023-08-04 13:25 ==
LOC: DL.ED 09:19
DX: K92.2 Gastrointestinal hemorrhage, unspecified (principal); I11.0 Hypertensive heart disease with heart failure; I50.9 Heart failure, unspecified; I25.10 Atherosclerotic heart disease of native coronary artery without angina pectoris; E78.00 Pure hypercholesterolemia, unspecified; E03.9 Hypothyroidism, unspecified; Z86.16 Personal history of COVID-19; J44.9 Chronic obstructive pulmonary disease, unspecified; Z95.1 Presence of aortocoronary bypass graft; Z88.0 Allergy status to penicillin; Z88.8 Allergy status to other drugs, medicaments and biological substances; Z95.5 Presence of coronary angioplasty implant and graft; Z90.49 Acquired absence of other specified parts of digestive tract; Z79.82 Long term (current) use of aspirin; Z79.899 Other long term (current) drug therapy; Z79.51 Long term (current) use of inhaled steroids
CPT/HCPCS: 36415; 80053; 81003; 82272; 83605; 83690; 83880; 85025; 85610; 85730; 96361; 96365; 96366; 99284; 99285-25; C9113; J3490; J7030

== ENCOUNTER 2023-08-13 13:51 | Emergency (ER) | payer MEDICARE, MEDICAID ==
[2023-08-13] MEDS: Sodium Chloride 0.9% 500 ML IV ONE (14:20)
[2023-08-13 14:29] LABS: BASOPHILS PERCENT AUTO 0.8 % (0.0-1.0); EOSINOPHILS PERCENT AUTO 4.5 % (1.0-3.0); HEMATOCRIT 32.2 % (40.0-54.0); HEMOGLOBIN 10.1 g/dL (14.0-18.0); LYMPHOCYTES PERCENT AUTO 34.1 % (20.5-50.1); MEAN CORPUSCULAR HEMOGLOBIN 30.1 pg (27.0-34.0); MEAN CORPUSCULAR HGB CONC 31.4 g/dL (33.0-35.0); MEAN CORPUSCULAR VOLUME 96.1 fL (80-100); MONOCYTES PERCENT AUTO 12.6 % (2-8); PLATELET COUNT,PLT 267 10^3/uL (150-450); RED BLOOD CELL COUNT 3.35 10^6/uL (4.6-6.2); WHITE BLOOD CELL COUNT,WBC 7.4 10^3/uL (5.0-10.0)
[2023-08-13 14:46] LABS: A/G RATIO 0.89; ALBUMIN 3.1 g/dL (3.4-5.0); ANION GAP 7.8 mEq/L (7-13); BILIRUBIN TOTAL 0.5 mg/dL (0.2-1.0); BUN/CREATININE RATIO 15.9 (No establ ref range); CALCIUM 8.8 mg/dL (8.5-10.1); CREATININE 2.01 mg/dL (0.70-1.30); EST CRCL DRUG DOSING (CG) 29.76 mL/min; LACTIC ACID 1.5 mmol/L (0.4-2.0); MAGNESIUM 2.3 mg/dL (1.8-2.4); POTASSIUM,K 3.8 mmol/L (3.5-5.1); PROTEIN TOTAL,TP 6.6 g/dL (6.4-8.2)
[2023-08-13 14:47] LABS: APPEARANCE,URINE CLEAR (CLEAR); BILIRUBIN,URINE NEGATIVE (NEGATIVE); COLOR,URINE YELLOW (YELLOW); GLUCOSE,URINE NEGATIVE (NEGATIVE); KETONES,URINE NEGATIVE (NEGATIVE); LEUKOCYTE ESTERASE,URINE NEGATIVE (NEGATIVE); NITRITE,URINE NEGATIVE (NEGATIVE); OCCULT BLOOD,URINE NEGATIVE (NEGATIVE); PH,URINE 5.5 (5.0-9.0); PROTEIN,URINE NEGATIVE (NEGATIVE); UROBILINOGEN,URINE 0.2 mg/dL (0.2-1.0)
[2023-08-13] MEDS: Sodium Chloride 0.9% 1,000 ML IV ONE ×2 (15:51→17:24)
[2023-08-13 18:16] VITALS: BP 120/66; PULSE 66
== END 2023-08-13 18:49 | disposition home or self-care (01) ==
LOC: DL.ED 13:51
DX: I38 Endocarditis, valve unspecified (principal); N17.9 Acute kidney failure, unspecified; E86.0 Dehydration; I11.0 Hypertensive heart disease with heart failure; I50.9 Heart failure, unspecified; I25.10 Atherosclerotic heart disease of native coronary artery without angina pectoris; E78.00 Pure hypercholesterolemia, unspecified; J44.9 Chronic obstructive pulmonary disease, unspecified; E03.9 Hypothyroidism, unspecified; Z86.16 Personal history of COVID-19; Z79.899 Other long term (current) drug therapy; Z79.51 Long term (current) use of inhaled steroids; Z95.1 Presence of aortocoronary bypass graft; Z95.5 Presence of coronary angioplasty implant and graft; Z88.0 Allergy status to penicillin; Z88.8 Allergy status to other drugs, medicaments and biological substances; Z79.82 Long term (current) use of aspirin; Z90.49 Acquired absence of other specified parts of digestive tract
CPT/HCPCS: 36415; 71045; 80053; 81003; 83605; 83735; 83880; 84484; 85025; 87040; 93005; 93010; 96360; 96361; 99284; 99285-25; J7030

== ENCOUNTER 2023-11-01 15:19 | Emergency (ER) | payer MEDICARE, MEDICAID ==
[2023-11-01] MEDS ORDERED: Fluconazole 100 MG Tab PO ONE (15:20)
[2023-11-01 15:39] VITALS: BP 111/56; PULSE 76
[2023-11-01 15:49] LABS: BASOPHILS PERCENT AUTO 0.3 % (0.0-1.0); EOSINOPHILS PERCENT AUTO 1.9 % (1.0-3.0); HEMATOCRIT 31.9 % (40.0-54.0); HEMOGLOBIN 9.9 g/dL (14.0-18.0); LYMPHOCYTES PERCENT AUTO 16.2 % (20.5-50.1); MEAN CORPUSCULAR HEMOGLOBIN 26.8 pg (27.0-34.0); MEAN CORPUSCULAR VOLUME 86.2 fL (80-100); MONOCYTES PERCENT AUTO 9.5 % (2-8); NEUTROPHILS PERCENT AUTO 72.1 % (42.2-75.2); PLATELET COUNT,PLT 215 10^3/uL (150-450); WHITE BLOOD CELL COUNT,WBC 11.9 10^3/uL (5.0-10.0)
[2023-11-01 16:10] LABS: ALBUMIN 2.7 g/dL (3.4-5.0); ANION GAP 7.6 mEq/L (7-13); BILIRUBIN TOTAL 0.4 mg/dL (0.2-1.0); CREATININE 2.71 mg/dL (0.70-1.30); EST CRCL DRUG DOSING (CG) 19.29 mL/min; POTASSIUM,K 3.6 mmol/L (3.5-5.1); PROTEIN TOTAL,TP 6.3 g/dL (6.4-8.2)
[2023-11-01 16:11] LABS: LACTIC ACID 1.4 mmol/L (0.4-2.0)
[2023-11-01] MEDS: Sodium Chloride 0.9% 10 ML Syringe FLUSH PRN (16:20)
[2023-11-01] MEDS: Albuterol/Ipratropium 3.0-0.5 MG/3 ML Neb Soln NEB ONE (16:20)
[2023-11-01] MEDS: Bumetanide 1 MG/4 ML MDV IVPUSH ONE (16:20)
[2023-11-01 16:22] LABS: A/G RATIO 0.75
[2023-11-01 17:50] LABS: APPEARANCE,URINE CLEAR (CLEAR); BILIRUBIN,URINE NEGATIVE (NEGATIVE); COLOR,URINE YELLOW (YELLOW); GLUCOSE,URINE NEGATIVE (NEGATIVE); KETONES,URINE NEGATIVE (NEGATIVE); LEUKOCYTE ESTERASE,URINE NEGATIVE (NEGATIVE); NITRITE,URINE NEGATIVE (NEGATIVE); OCCULT BLOOD,URINE NEGATIVE (NEGATIVE); PH,URINE 6.5 (5.0-9.0); PROTEIN,URINE NEGATIVE (NEGATIVE); UROBILINOGEN,URINE 0.2 mg/dL (0.2-1.0)
[2023-11-01 18:06] LABS: AMORPHOUS SEDIMENT,URINE FEW /HPF (NOT SEEN); BACTERIA,URINE FEW /HPF (0-FEW/HPF); EPITHELIAL CELLS,URINE FEW /HPF (NOT SEEN); MUCUS,URINE FEW /LPF (NOT SEEN); RBC,URINE 0-5 /HPF (0-5); WBC,URINE 0-5 /HPF (0-5/HPF)
[2023-11-01] MEDS: Clindamycin HCl 150 MG Cap PO ONE (18:23)
[2023-11-01] MEDS: Fluconazole 100 MG Tab PO ONE (18:23)
[2023-11-01] MEDS ORDERED: Fluconazole 100 MG Tab ONE (18:31)
[2023-11-01] MEDS: Take Home: Clindamycin HCl 150 MG, 12 Cap Pack PO ONE (18:48)
== END 2023-11-01 18:46 | disposition home or self-care (01) ==
LOC: DL.ED 15:19
DX: I87.2 Venous insufficiency (chronic) (peripheral) (principal); L03.115 Cellulitis of right lower limb; B37.0 Candidal stomatitis; B37.2 Candidiasis of skin and nail; I25.10 Atherosclerotic heart disease of native coronary artery without angina pectoris; E78.00 Pure hypercholesterolemia, unspecified; I10 Essential (primary) hypertension; J44.9 Chronic obstructive pulmonary disease, unspecified; E03.9 Hypothyroidism, unspecified; E66.9 Obesity, unspecified; Z86.16 Personal history of COVID-19; Z79.82 Long term (current) use of aspirin; Z79.899 Other long term (current) drug therapy; Z88.0 Allergy status to penicillin; Z88.1 Allergy status to other antibiotic agents; Z68.34 Body mass index [BMI] 34.0-34.9, adult
CPT/HCPCS: 36415; 71045; 80053; 81001; 83605; 83880; 84484; 85025; 93005; 93010; 96374; 99284; A9270; J3490; J7620-GY

== ENCOUNTER 2023-12-21 12:33 | Emergency (ER) | payer MEDICARE, MEDICAID ==
[2023-12-21] MEDS ORDERED: Sodium Chloride 0.9% 10 ML Syringe FLUSH PRN (12:34)
[2023-12-21 12:42] LABS: BASOPHILS PERCENT AUTO 0.5 % (0.0-1.0); EOSINOPHILS PERCENT AUTO 1.2 % (1.0-3.0); LYMPHOCYTES PERCENT AUTO 17.7 % (20.5-50.1); MEAN CORPUSCULAR HEMOGLOBIN 24.9 pg (27.0-34.0); MEAN CORPUSCULAR VOLUME 85.8 fL (80-100); MONOCYTES PERCENT AUTO 7.4 % (2-8); NEUTROPHILS PERCENT AUTO 73.2 % (42.2-75.2); PLATELET COUNT,PLT 235 10^3/uL (150-450); RED BLOOD CELL COUNT 2.33 10^6/uL (4.6-6.2); WHITE BLOOD CELL COUNT,WBC 11.7 10^3/uL (5.0-10.0)
[2023-12-21 12:46] LABS: HEMOGLOBIN 5.8 g/dL (14.0-18.0)
[2023-12-21 13:11] LABS: INR 1.1 (0.9-1.2); PROTHROMBIN TIME 11.8 SEC (9.0-12.0); PTT,PARTIAL THROMBOPLSTIN TIME 25.1 SEC (22.0-34.0)
[2023-12-21 13:14] LABS: ALBUMIN 2.5 g/dL (3.4-5.0); ANION GAP 9.3 mEq/L (7-13); BILIRUBIN TOTAL 0.3 mg/dL (0.2-1.0); BUN/CREATININE RATIO 48.7 (No establ ref range); CALCIUM 8.8 mg/dL (8.5-10.1); CREATININE 1.87 mg/dL (0.70-1.30); MAGNESIUM 1.6 mg/dL (1.8-2.4); POTASSIUM,K 3.3 mmol/L (3.5-5.1); PROTEIN TOTAL,TP 5.4 g/dL (6.4-8.2)
[2023-12-21 13:28] LABS: A/G RATIO 0.86; EST CRCL DRUG DOSING (CG) 31.99 mL/min
[2023-12-21 13:28] LABS: APPEARANCE,URINE CLEAR (CLEAR); BILIRUBIN,URINE NEGATIVE (NEGATIVE); COLOR,URINE YELLOW (YELLOW); GLUCOSE,URINE NEGATIVE (NEGATIVE); KETONES,URINE NEGATIVE (NEGATIVE); LEUKOCYTE ESTERASE,URINE NEGATIVE (NEGATIVE); NITRITE,URINE NEGATIVE (NEGATIVE); OCCULT BLOOD,URINE NEGATIVE (NEGATIVE); PH,URINE 6.5 (5.0-9.0); PROTEIN,URINE NEGATIVE (NEGATIVE); UROBILINOGEN,URINE 0.2 mg/dL (0.2-1.0)
[2023-12-21 14:29] VITALS: BP 98/54; PULSE 79
== END 2023-12-21 14:48 ==
LOC: DL.ED 12:33
DX: I95.9 Hypotension, unspecified (principal); J96.21 Acute and chronic respiratory failure with hypoxia; R42 Dizziness and giddiness; D62 Acute posthemorrhagic anemia; R19.5 Other fecal abnormalities; I11.0 Hypertensive heart disease with heart failure; I50.9 Heart failure, unspecified; I25.10 Atherosclerotic heart disease of native coronary artery without angina pectoris; J44.9 Chronic obstructive pulmonary disease, unspecified; E11.9 Type 2 diabetes mellitus without complications; I48.91 Unspecified atrial fibrillation; E03.9 Hypothyroidism, unspecified; E66.9 Obesity, unspecified; Z95.5 Presence of coronary angioplasty implant and graft; Z95.1 Presence of aortocoronary bypass graft; Z90.49 Acquired absence of other specified parts of digestive tract; Z86.16 Personal history of COVID-19; Z79.82 Long term (current) use of aspirin; Z79.899 Other long term (current) drug therapy; Z79.890 Hormone replacement therapy; Z79.51 Long term (current) use of inhaled steroids; Z79.01 Long term (current) use of anticoagulants; Z68.33 Body mass index [BMI] 33.0-33.9, adult; Z88.0 Allergy status to penicillin
CPT/HCPCS: 36415; 36430; 70450; 71045; 80053; 81003; 82272; 83735; 83880; 84484; 85025; 85610; 85730; 86850; 86900; 86901; 86920; 86922; 93005; 93010; 99285; P9016

== ENCOUNTER 2024-01-14 21:59 | Emergency (ER) | payer MEDICARE, MEDICAID ==
[~2024-01-14 21:59] MED LIST: Sodium Chloride 0.9% 10 ML Syringe FLUSH PRN
[2024-01-14 22:22] LABS: BASOPHILS PERCENT AUTO 0.5 % (0.0-1.0); EOSINOPHILS PERCENT AUTO 2.2 % (1.0-3.0); HEMATOCRIT 32.6 % (40.0-54.0); HEMOGLOBIN 9.2 g/dL (14.0-18.0); LYMPHOCYTES PERCENT AUTO 20.9 % (20.5-50.1); MEAN CORPUSCULAR HEMOGLOBIN 26.5 pg (27.0-34.0); MEAN CORPUSCULAR HGB CONC 28.2 g/dL (33.0-35.0); MEAN CORPUSCULAR VOLUME 93.9 fL (80-100); MONOCYTES PERCENT AUTO 8.4 % (2-8); PLATELET COUNT,PLT 196 10^3/uL (150-450); RED BLOOD CELL COUNT 3.47 10^6/uL (4.6-6.2); WHITE BLOOD CELL COUNT,WBC 9.8 10^3/uL (5.0-10.0)
[2024-01-14] MEDS: Albuterol/Ipratropium 3.0-0.5 MG/3 ML Neb Soln NEB ONE (22:22)
[2024-01-14 22:35] LABS: APPEARANCE,URINE CLEAR (CLEAR); BILIRUBIN,URINE NEGATIVE (NEGATIVE); COLOR,URINE YELLOW (YELLOW); GLUCOSE,URINE NEGATIVE (NEGATIVE); KETONES,URINE NEGATIVE (NEGATIVE); LEUKOCYTE ESTERASE,URINE NEGATIVE (NEGATIVE); NITRITE,URINE NEGATIVE (NEGATIVE); OCCULT BLOOD,URINE NEGATIVE (NEGATIVE); PROTEIN,URINE NEGATIVE (NEGATIVE); UROBILINOGEN,URINE 0.2 mg/dL (0.2-1.0)
[2024-01-14 22:37] LABS: B-TYPE NATRIURETIC PEPTIDE,BNP 115 pg/ml (0-100)
[2024-01-14 22:45] LABS: ALANINE AMINOTRANSFERASE,ALT 21 U/L (16-63); ALBUMIN 2.9 g/dL (3.4-5.0); ALKALINE PHOSPHATASE 109 U/L (46-116); ANION GAP 7.3 mEq/L (7-13); ASPARTATE AMNIOTRANSFERASE,AST 10 U/L (15-37); BILIRUBIN TOTAL 0.3 mg/dL (0.2-1.0); BLOOD UREA NITROGEN,BUN 22 mg/dL (7-18); BUN/CREATININE RATIO 13.7 (No establ ref range); CALCIUM 8.7 mg/dL (8.5-10.1); CARBON DIOXIDE,CO2 40 mmol/L (21-32); CHLORIDE,CL 100 mmol/L (98-107); CREATININE 1.61 mg/dL (0.70-1.30); GLUCOSE RANDOM 139 mg/dL (70-99); POTASSIUM,K 4.3 mmol/L (3.5-5.1); PROTEIN TOTAL,TP 5.9 g/dL (6.4-8.2); SODIUM,NA 143 mmol/L (136-145)
[2024-01-14 22:46] LABS: A/G RATIO 0.97; ESTIMATED GFR 43 mL/min (>=60)
[2024-01-14 22:54] LABS: PROTHROMBIN TIME 10.1 SEC (9.0-12.0); PTT,PARTIAL THROMBOPLSTIN TIME 21.6 SEC (22.0-34.0)
[2024-01-14 23:15] VITALS: BP 143/62; PULSE 66
[2024-01-15] MEDS: Azithromycin 250 MG Tab PO ONE (00:20)
[2024-01-15] MEDS: predniSONE 20 MG Tab PO ONE (00:20)
[2024-01-15] MEDS: Take Home: predniSONE 20 MG, 4 Tab Pack PO ONE (00:35)
[2024-01-15] MEDS: Take Home: Azithromycin 250 MG, 2 Tab Pack PO ONE (00:35)
== END 2024-01-15 00:55 | disposition home or self-care (01) ==
LOC: DL.ED 21:59
DX: J44.1 Chronic obstructive pulmonary disease with (acute) exacerbation (principal); J96.11 Chronic respiratory failure with hypoxia; I48.92 Unspecified atrial flutter; N18.32 Chronic kidney disease, stage 3b; I11.0 Hypertensive heart disease with heart failure; I50.9 Heart failure, unspecified; I25.10 Atherosclerotic heart disease of native coronary artery without angina pectoris; E78.00 Pure hypercholesterolemia, unspecified; E03.9 Hypothyroidism, unspecified; Z87.891 Personal history of nicotine dependence; E66.9 Obesity, unspecified; Z68.35 Body mass index [BMI] 35.0-35.9, adult; Z88.1 Allergy status to other antibiotic agents; Z86.16 Personal history of COVID-19; Z90.49 Acquired absence of other specified parts of digestive tract; Z95.5 Presence of coronary angioplasty implant and graft; Z79.82 Long term (current) use of aspirin; Z79.899 Other long term (current) drug therapy
CPT/HCPCS: 36415; 71045; 80053; 81003; 83735; 83880; 84484; 85025; 85610; 85730; 87804; 93005; 93010; 94640; 94762; 99285; A9270; J7512; U0002; J7620-GY

== ENCOUNTER 2024-08-31 13:46 | Emergency (ER) | payer MEDICARE, OTHER, MEDICAID ==
[2024-08-31] MEDS ORDERED: Sodium Chloride 0.9% 10 ML Syringe FLUSH PRN (13:55)
[2024-08-31 14:11] LABS: BASOPHILS PERCENT AUTO 0.3 % (0.0-1.0); EOSINOPHILS PERCENT AUTO 2.4 % (1.0-3.0); HEMATOCRIT 40.5 % (40.0-54.0); HEMOGLOBIN 12.6 g/dL (14.0-18.0); MEAN CORPUSCULAR HEMOGLOBIN 29.6 pg (27.0-34.0); MEAN CORPUSCULAR HGB CONC 31.1 g/dL (33.0-35.0); MEAN CORPUSCULAR VOLUME 95.3 fL (80-100); MONOCYTES PERCENT AUTO 7.8 % (2-8); NEUTROPHILS PERCENT AUTO 71.5 % (42.2-75.2); PLATELET COUNT,PLT 182 10^3/uL (150-450); RED BLOOD CELL COUNT 4.25 10^6/uL (4.6-6.2); WHITE BLOOD CELL COUNT,WBC 8.7 10^3/uL (5.0-10.0)
[2024-08-31 14:27] LABS: PROTHROMBIN TIME 10.2 SEC (9.0-12.0)
[2024-08-31 14:32] LABS: ALBUMIN 3.4 g/dL (3.4-5.0); ANION GAP 8.9 mEq/L (7-13); BILIRUBIN TOTAL 0.5 mg/dL (0.2-1.0); BUN/CREATININE RATIO 20.5 (No establ ref range); C-REACTIVE PROTEIN 0.92 ng/dL (<=0.50); CALCIUM 9.3 mg/dL (8.5-10.1); CREATININE 1.51 mg/dL (0.70-1.30); EST CRCL DRUG DOSING (CG) 35.26 mL/min; POTASSIUM,K 3.9 mmol/L (3.5-5.1); PROTEIN TOTAL,TP 6.7 g/dL (6.4-8.2)
[2024-08-31 14:43] VITALS: BP 128/50; PULSE 71
== END 2024-08-31 14:49 | disposition home or self-care (01) ==
LOC: DL.ED 13:46
DX: K92.2 Gastrointestinal hemorrhage, unspecified (principal); Z88.1 Allergy status to other antibiotic agents; I25.10 Atherosclerotic heart disease of native coronary artery without angina pectoris; I11.0 Hypertensive heart disease with heart failure; I50.9 Heart failure, unspecified; E66.9 Obesity, unspecified; E03.9 Hypothyroidism, unspecified; Z88.8 Allergy status to other drugs, medicaments and biological substances; Z79.82 Long term (current) use of aspirin; Z79.899 Other long term (current) drug therapy; Z79.890 Hormone replacement therapy; Z86.16 Personal history of COVID-19; Z90.49 Acquired absence of other specified parts of digestive tract; Z68.37 Body mass index [BMI] 37.0-37.9, adult
CPT/HCPCS: 36415; 80053; 82272; 83735; 85025; 85610; 86140; 99284; 99285

== ENCOUNTER 2024-09-06 06:57 | Day surgery (SDC) | payer MEDICARE, MEDICAID ==
[2024-09-06] MEDS ORDERED: Ketamine 500 mg/10 ML MDV IV ONE (06:58)
[2024-09-06] MEDS ORDERED: dexmedeTOMIDine HCl 200 MCG/2 ML SDV IV ONE (06:58)
[2024-09-06] MEDS ORDERED: Propofol 200 MG/20 ML SDV IV ONE (06:58)
[2024-09-06] MEDS ORDERED: Propofol 200 MG/20 ML SDV ONE ×2 (08:14→09:04)
[2024-09-06] MEDS: Lactated Ringers 1,000 ML IV SCH (08:15)
[2024-09-06 09:48] VITALS: BP 119/49; PULSE 67
== END 2024-09-06 10:35 | disposition home or self-care (01) ==
LOC: DL.ENDO 06:57
PROVIDERS: ATTEND Internal Medicine Gastroenterology
DX: K29.51 Unspecified chronic gastritis with bleeding (principal); K21.9 Gastro-esophageal reflux disease without esophagitis; I11.0 Hypertensive heart disease with heart failure; I50.22 Chronic systolic (congestive) heart failure; J44.89 Other specified chronic obstructive pulmonary disease; I25.10 Atherosclerotic heart disease of native coronary artery without angina pectoris; E78.5 Hyperlipidemia, unspecified; E11.9 Type 2 diabetes mellitus without complications
CPT/HCPCS: 43239; J7120; 00731; 88305; 88342; 99100; J2704; J3490

== ENCOUNTER 2024-10-06 12:17 | Emergency (ER) | payer MEDICARE, MEDICAID ==
[2024-10-06] MEDS ORDERED: Sodium Chloride 0.9% 10 ML Syringe FLUSH PRN (12:33)
[2024-10-06 12:47] LABS: HEMATOCRIT 40.5 % (40.0-54.0); HEMOGLOBIN 12.6 g/dL (14.0-18.0); MEAN CORPUSCULAR HEMOGLOBIN 30.7 pg (27.0-34.0); MEAN CORPUSCULAR HGB CONC 31.1 g/dL (33.0-35.0); MEAN CORPUSCULAR VOLUME 98.8 fL (80-100); PLATELET COUNT,PLT 228 10^3/uL (150-450)
[2024-10-06 12:51] VITALS: BP 144/57; PULSE 73
[2024-10-06 13:02] LABS: BASOPHILS PERCENT AUTO 0.4 % (0.0-1.0); EOSINOPHILS PERCENT AUTO 1.8 % (1.0-3.0); LYMPHOCYTES PERCENT AUTO 22.2 % (20.5-50.1); MONOCYTES PERCENT AUTO 7.3 % (2-8); NEUTROPHILS PERCENT AUTO 68.3 % (42.2-75.2)
[2024-10-06 13:05] LABS: PROTHROMBIN TIME 10.4 SEC (9.0-12.0); PTT,PARTIAL THROMBOPLSTIN TIME 21.2 SEC (22.0-34.0)
[2024-10-06 13:08] LABS: A/G RATIO 0.86; ALBUMIN 3.1 g/dL (3.4-5.0); ANION GAP 9.3 mEq/L (7-13); BILIRUBIN TOTAL 0.5 mg/dL (0.2-1.0); BUN/CREATININE RATIO 16.1 (No establ ref range); C-REACTIVE PROTEIN 1.48 ng/dL (<=0.50); CALCIUM 9.4 mg/dL (8.5-10.1); CREATININE 1.61 mg/dL (0.70-1.30); EST CRCL DRUG DOSING (CG) 29.62 mL/min; MAGNESIUM 1.9 mg/dL (1.8-2.4); POTASSIUM,K 4.3 mmol/L (3.5-5.1); PROTEIN TOTAL,TP 6.7 g/dL (6.4-8.2)
[2024-10-06 13:11] LABS: LACTIC ACID 1.7 mmol/L (0.4-2.0)
[2024-10-06 13:16] LABS: EOSINOPHILS PERCENT MAN 2 % (1-3); LYMPHOCYTES PERCENT MAN 22 % (20-50); MONOCYTES PERCENT MAN 5 % (2-8); SEG NEUTROPHILS PERCENT MAN 71 % (42-75)
== END 2024-10-06 13:52 | disposition home or self-care (01) ==
LOC: DL.ED 12:17
DX: K92.1 Melena (principal); I11.0 Hypertensive heart disease with heart failure; I50.9 Heart failure, unspecified; I25.10 Atherosclerotic heart disease of native coronary artery without angina pectoris; E78.00 Pure hypercholesterolemia, unspecified; J44.89 Other specified chronic obstructive pulmonary disease; E11.9 Type 2 diabetes mellitus without complications; E03.9 Hypothyroidism, unspecified; E66.9 Obesity, unspecified; Z68.41 Body mass index [BMI] 40.0-44.9, adult; Z86.16 Personal history of COVID-19; Z79.890 Hormone replacement therapy; Z79.899 Other long term (current) drug therapy; Z88.8 Allergy status to other drugs, medicaments and biological substances; Z88.0 Allergy status to penicillin
CPT/HCPCS: 36415; 80053; 82272; 83605; 83735; 85025; 85610; 85730; 86140; 99284; 99285